=== PATIENT | female | born 1975 | race African-American/Black ===

== ENCOUNTER → 2016-05-13 | Outpatient (CLI) | payer OTHER ==
[~2016-05-13] MED LIST: ACCUNEB SO1.25 MG/1; ADVAIR HFA 230M12 GM; HYDROCHLOROTH12.5 M1 PO; MACROBID 100 M100 M1 PO; NORVASC2.5 MG PO; ORTHO EVRA PAT1 EACH; PHENERGAN 25 MG25 M1 PO; PRAZOSIN 1 MG CA1 M1 PO; SONATA5 MG PO; WOMEN S ONE DA; XANAX 0.25 MG0.25 MG PO; ZOLOFT25 MG PO
== END ==
LOC: MRI 03-19 13:23
DX: I63.9 Cerebral infarction, unspecified (principal); E34.8 Other specified endocrine disorders

== ENCOUNTER 2016-07-09 22:25 | Emergency (ER) | payer BC, OTHER ==
[~2016-07-09] VITALS: Ht 162.6 cm; Wt 56.7 kg
[2016-07-09 23:09] LABS: BASOPHILS 0.8 % (0.0-2.0); EOSINOPHILS 0.8 % (0.0-3.0); HEMATOCRIT 26.4 % (37.0-47.0); HEMOGLOBIN 8.3 gm/dL (12.0-15.0); LYMPHOCYTES 21.2 % (24.0-44.0); MCH 21.4 pg (26.0-34.0); MCHC 31.3 g/dL (28.0-37.0); MCV 68.4 fL (80.0-100.0); MONOCYTES 5.5 % (1.0-8.0); PLATELET COUNT 389 thou/uL (150-400); POLYS 71.7 % (36.0-66.0); RBC 3.86 mil/uL (4.20-5.00); RDW 18.6 % (10.5-14.5)
[2016-07-09 23:18] LABS: ANION GAP 10 mmol/L (7-16); BUN 7 mg/dL (7-18); CALCIUM 8.3 mg/dL (8.5-10.1); CHLORIDE 103 mmol/L (98-107); CO2 24 mmol/L (21-32); CREATININE 0.8 mg/dL (0.6-1.0); GLUCOSE 118 mg/dL (74-106); POTASSIUM 3.3 mmol/L (3.5-5.1); SODIUM 137 mmol/L (136-145)
[2016-07-09 23:21] LABS: MANUAL DIFF NO
[2016-07-09 23:23] LABS: ALBUMIN 3.3 g/dL (3.4-5.0); ALKALINE PHOSPHATASE 42 U/L (46-116); DIRECT BILIRUBIN < 0.1 mg/dL (<0.1-0.3); SGOT 13 U/L (15-37); SGPT 13 U/L (30-65); TOTAL BILIRUBIN 0.2 mg/dL (<0.1-1.0); TOTAL PROTEIN 7.5 g/dL (6.4-8.2)
[2016-07-10 00:01] LABS: URINE BILIRUBIN NEGATIVE (Negative); URINE BLOOD NEGATIVE (Negative); URINE COLOR YELLOW; URINE GLUCOSE-RANDOM* NEGATIVE (Negative); URINE KETONES NEGATIVE (Negative); URINE NITRITE NEGATIVE (Negative); URINE PROTEIN (DIPSTICK) TRACE (Negative); URINE SPECIFIC GRAVITY 1.015 (1.003-1.035); URINE UROBILINOGEN 0.2 E.U./dl (0.2-1.0)
[2016-07-10 00:13] LABS: BACTERIA 1-9 Few /HPF (None Seen); CASTS None Seen /LPF (None Seen); CRYSTALS None Seen /LPF (None Seen); SQUAMOUS >10 Many /LPF (0-3); URINE RBC 0-2 Rare /HPF (0-2); URINE WBC 0-5 Rare /HPF (0-5)
[2016-07-10 00:21] LABS: ANISOCYTOSIS 3+; MACROCYTES 1+; MICROCYTES 2+
[2016-07-10 00:22] LABS: HYPOCHROMASIA SLIGHT
[2016-07-10] MEDS ORDERED: CITRATE OF MAG296 ML PO (01:14)
[2016-07-10] MEDS ORDERED: NORCO 5-325 TA1 EACH PO (01:14)
[2016-07-10] MEDS ORDERED: SENOKOT-S1 TA1 PO (01:14)
[2016-07-10 01:42] VITALS: BP 130/80
== END 2016-07-10 01:53 | disposition home or self-care (01) ==
LOC: ER 22:25
PROVIDERS: Emergency Medicine
DX: K59.00 Constipation, unspecified (principal); D64.9 Anemia, unspecified; D25.9 Leiomyoma of uterus, unspecified; E87.6 Hypokalemia; I10 Essential (primary) hypertension

== ENCOUNTER → 2016-09-14 | Outpatient (CLI) | payer BC, OTHER ==
[~2016-09-14] MED LIST changes: -ACCUNEB SO1.25 MG/1; +ACCUNEB SO1.25 MG/1 INH; +CITRATE OF MAG296 ML PO; +LOSARTAN-HCTZ1 EAC3 PO; +NORCO 5-325 TA1 EACH PO; +SENOKOT-S1 TA1 PO
[2016-09-14 08:45] VITALS: BP 116/73
[2016-09-14 10:05] VITALS: BP 116/70
== END ==
LOC: OPONC 01:29
DX: D50.0 Iron deficiency anemia secondary to blood loss (chronic) (principal); N92.6 Irregular menstruation, unspecified
CPT/HCPCS: 95000

== ENCOUNTER → 2016-09-21 | Outpatient (CLI) | payer BC, OTHER ==
[2016-09-21 08:10] VITALS: BP 123/73
[2016-09-21 09:15] VITALS: BP 115/69
== END ==
LOC: OPONC 07:51
DX: D50.0 Iron deficiency anemia secondary to blood loss (chronic) (principal)
CPT/HCPCS: 95000

== ENCOUNTER 2017-08-01 07:53 | Emergency (ER) | payer OTHER, BC ==
[~2017-08-01] VITALS: Ht 162.6 cm; Wt 65.3 kg
[~2017-08-01 07:53] MED LIST changes: +HYDROCODONE-AP1 EAC6 PO; +NAPROSYN500 MG PO
[2017-08-01] MEDS ORDERED: IBUPROFEN 600600 M1 PO (09:39)
[2017-08-01] MEDS ORDERED: ULTRAM 50MG TAB50 MG PO (09:39)
[2017-08-01] MEDS ORDERED: NORFLEX100 MG PO (09:39)
== END 2017-08-01 10:03 | disposition home or self-care (01) ==
LOC: ER 07:53
DX: S06.9X1A Unspecified intracranial injury with loss of consciousness of 30 minutes or less, initial encounter (principal); S20.212A Contusion of left front wall of thorax, initial encounter; S00.83XA Contusion of other part of head, initial encounter; I10 Essential (primary) hypertension; J45.909 Unspecified asthma, uncomplicated; Z88.2 Allergy status to sulfonamides; Y04.8XXA Assault by other bodily force, initial encounter; Y93.89 Activity, other specified; Y92.89 Other specified places as the place of occurrence of the external cause; Y99.8 Other external cause status

== ENCOUNTER 2018-08-19 16:02 | Emergency (ER) | payer OTHER ==
[~2018-08-19] VITALS: Ht 165.1 cm; Wt 59.0 kg
[~2018-08-19 16:02] MED LIST changes: +IBUPROFEN 600600 M1 PO; +NORFLEX100 MG PO; +ULTRAM 50MG TAB50 MG PO
[2018-08-19 17:44] LABS: URINE BILIRUBIN NEGATIVE (Negative); URINE BLOOD NEGATIVE (Negative); URINE CLARITY CLEAR; URINE COLOR YELLOW; URINE GLUCOSE-RANDOM* NEGATIVE (Negative); URINE KETONES NEGATIVE (Negative); URINE LEUKOCYTES-REFLEX NEGATIVE (Negative); URINE NITRITE-REFLEX NEGATIVE (Negative); URINE PROTEIN (DIPSTICK) TRACE (Negative); URINE SPECIFIC GRAVITY 1.025 (1.005-1.035); URINE UROBILINOGEN 0.2 E.U./dl (0.2-1.0)
[2018-08-19 17:58] LABS: ABSOLUTE NEUTROPHILS 4.2 thou/uL (1.4-8.2); BASOPHILS 0.9 % (0.0-2.0); EOSINOPHILS 1.4 % (0.0-3.0); HEMATOCRIT 31.2 % (37.0-47.0); HEMOGLOBIN 10.1 gm/dL (12.0-15.0); LYMPHOCYTES 34.6 % (24.0-44.0); MCH 23.6 pg (26.0-34.0); MCHC 32.3 g/dL (28.0-37.0); MONOCYTES 7.9 % (1.0-8.0); PLATELET COUNT 423 thou/uL (150-400); POLYS 55.2 % (36.0-66.0); RBC 4.28 mil/uL (4.20-5.00); RDW 16.5 % (10.5-14.5); WBC 7.6 thou/uL (4.0-11.0)
[2018-08-19 18:09] LABS: ANION GAP 12 mmol/L (7-16); BUN 10 mg/dL (7-18); CALCIUM 9.3 mg/dL (8.5-10.1); CHLORIDE 101 mmol/L (98-107); CO2 24 mmol/L (21-32); CREATININE 0.8 mg/dL (0.6-1.0); GLUCOSE 94 mg/dL (74-106); POTASSIUM 3.1 mmol/L (3.5-5.1); SODIUM 137 mmol/L (136-145)
[2018-08-19 18:16] LABS: ALBUMIN 3.9 g/dL (3.4-5.0); MAGNESIUM 2.1 mg/dL (1.8-2.4); SGOT 14 U/L (15-37); SGPT 12 U/L (30-65); TOTAL BILIRUBIN 0.2 mg/dL (<0.1-1.0); TOTAL PROTEIN 8.3 g/dL (6.4-8.2); TROPONIN-I <0.06 ng/mL (<0.06)
[2018-08-19 18:17] LABS: ANISOCYTOSIS 1+; HYPOCHROMASIA 1+; MICROCYTES 1+
[2018-08-19 18:26] LABS: APTT 26.1 Seconds (24.5-32.8); PROTIME 10.1 Seconds (9.3-11.4)
[2018-08-19] MEDS ORDERED: LABETALOL HCL100 MG PO (18:54)
[2018-08-19] MEDS ORDERED: VITAMIN B-625 MG PO (20:02)
[2018-08-19 20:19] VITALS: BP 111/61
--- NOTE | 2018-08-20 11:12 | EKG ---
[address] [place] [employer] [place] [address] ELECTROCARDIOGRAM REPORT Name: OLIVIA NESBITT [facility] [id number] ������������������ Admission: 08/19/18 ������������������ Attend Phys: Discharge: 08/19/18 ������������������ Date of : 75 Report #: [id number] ����������������������������������������������������������������� [id number] THIS REPORT FOR: //name// [facility] ED Test Date: 2018-08-19 Test Time: 17:25:39 Pat Name: OLIVIA NESBITT Department: Room: Gender: F Rn Telephonic: ANTONY : 1975 Requested By: [place] Order Number: [id number] MD: Juan Manuel Downs Measurements Intervals [place] Rate: 80 P: 47 NE: 147 QRS: -5 QRSD: 88 T: 7 QT: 376 QTc: 434 Interpretive Statements Sinus rhythm No significant abnormality Compared to ECG 12/17/2016 14:55:24 No significant change was found Electronically Signed On 08-20-2018 11:12:18 CDT by Juan Manuel Downs [email or web address] ��������������������������������������������� <ELECTRONICALLY SIGNED> ���������������������������������������� By: Juan Manuel Downs MD, [facility] ��������������������������������������������� 08/20/18 1112 1725 24 Juan Manuel Downs MD, FACC /EPI
== END 2018-08-19 20:19 ==
LOC: ER 16:02
PROVIDERS: Emergency Medicine
DX: O16.2 Unspecified maternal hypertension, second trimester (principal); O46.92 Antepartum hemorrhage, unspecified, second trimester; O99.512 Diseases of the respiratory system complicating pregnancy, second trimester; R42 Dizziness and giddiness; Z98.890 Other specified postprocedural states; Z86.2 Personal history of diseases of the blood and blood-forming organs and certain disorders involving the immune mechanism; Z88.2 Allergy status to sulfonamides; Z3A.20 20 weeks gestation of pregnancy

== ENCOUNTER 2019-05-20 13:36 | Emergency (ER) | payer OTHER ==
[~2019-05-20] VITALS: Ht 162.6 cm; Wt 63.5 kg
[~2019-05-20 13:36] MED LIST changes: +LABETALOL HCL100 MG PO; +VITAMIN B-625 MG PO
[2019-05-20 14:58] LABS: URINE BLOOD 3+ (Negative); URINE CLARITY SL CLOUDY; URINE COLOR YELLOW; URINE GLUCOSE-RANDOM* NEGATIVE (Negative); URINE KETONES TRACE (Negative); URINE LEUKOCYTES-REFLEX NEGATIVE (Negative); URINE NITRITE-REFLEX NEGATIVE (Negative); URINE PROTEIN (DIPSTICK) 2+ (Negative); URINE SPECIFIC GRAVITY >= 1.030 (1.005-1.035)
[2019-05-20 15:00] LABS: ICTOTEST (BILI CONFIRMATORY) Negative (Negative); URINE BILIRUBIN NEGATIVE (Negative)
[2019-05-20 15:10] LABS: BACTERIA-REFLEX 1-9 Few /HPF (None Seen); CASTS None Seen /LPF (None Seen); CRYSTALS None Seen /LPF (None Seen); SQUAMOUS 0-3 Few /LPF (0-3); URINE RBC >20 Many /HPF (0-2); URINE WBC-REFLEX 0-5 Rare /HPF (0-5)
[2019-05-20 15:20] LABS: HEMATOCRIT 25.3 % (37.0-47.0); MCH 22.7 pg (26.0-34.0); MCHC 31.8 g/dL (28.0-37.0); MCV 71.3 fL (80.0-100.0); RBC 3.54 mil/uL (4.20-5.00); RDW 16.9 % (10.5-14.5); WBC 7.2 thou/uL (4.0-11.0)
[2019-05-20 15:26] LABS: POTASSIUM 4.1 mmol/L (3.5-5.1)
[2019-05-20] MEDS ORDERED: TENDERA-OB SOF1 EACH PO (17:28)
[2019-05-20] MEDS ORDERED: NORCO 5-325 TA1 EAC1 PO (17:54)
[2019-05-20 17:59] VITALS: BP 126/80
== END 2019-05-20 18:00 | disposition home or self-care (01) ==
LOC: ER 13:36
PROVIDERS: Emergency Medicine Emergency Medical Services
DX: D50.9 Iron deficiency anemia, unspecified (principal); N93.9 Abnormal uterine and vaginal bleeding, unspecified; R10.30 Lower abdominal pain, unspecified; I10 Essential (primary) hypertension; J45.909 Unspecified asthma, uncomplicated; Z88.2 Allergy status to sulfonamides

== ENCOUNTER → 2019-06-15 | Outpatient (CLI) | payer OTHER ==
[~2019-06-15] VITALS: Ht 162.6 cm; Wt 63.5 kg
[~2019-06-15] MED LIST changes: +IBUPROFEN PM C1 EACH PO; +NORCO 5-325 TA1 EAC1 PO; +TENDERA-OB SOF1 EACH PO
[2019-06-15 14:15] VITALS: BP 138/93
--- NOTE | 2019-06-15 17:28 | NUR ---
IN FOR 1ST DOSE OF FERRLECIT FOR IRON DEF. ANEMIA. ADMISSION HISTORY AND ASSESSMENT COMPLETED. MEDICATION RECONCILED. IV PLACED IN RAC AND INFUSED FERRLECIT OVER 1 HOUR. TOLERATED WELL WITH NO REACTION NOTED. REMOVED IV AND DISMISSED IN GOOD CONDITION. TO RETURN NEXT WEDNESDAY FOR 2ND INFUSION.
== END ==
LOC: OPONC 09:13
DX: D50.9 Iron deficiency anemia, unspecified (principal)
CPT/HCPCS: 95000

== ENCOUNTER → 2019-06-23 | Outpatient (CLI) | payer OTHER ==
[2019-06-23 14:10] VITALS: BP 129/79
--- NOTE | 2019-06-23 17:42 | NUR ---
IN FOR 2ND FERRLICET INFUSION. STATED FEELING BETTER WITH LESS FATIGUE IN THE LAST WEEK. STATED HAD A LITTLE NAUSEA AND A HEADACHE FOR 2 DAYS AFTER 1ST INFUSION. STATED FEELING WELL TODAY. INFUSED FERRLICET OVER 1 HOUR AND TOLERATED WELL WITH NO ADVERSE REACTION NOTED. REMOVED IV AND DISMISSED IN GOOD CONDITION.
== END ==
LOC: OPONC 09:51
DX: D50.9 Iron deficiency anemia, unspecified (principal)
CPT/HCPCS: 95000

== ENCOUNTER 2020-02-13 19:14 | Emergency (ER) | payer OTHER ==
[~2020-02-13] VITALS: Ht 162.6 cm; Wt 65.3 kg
[2020-02-13] MEDS ORDERED: ASA-BUTALB-CAF1 EACH PO (20:12)
[2020-02-13] MEDS ORDERED: AUROVELA FE 1-1 EACH PO (20:13)
[2020-02-13] MEDS ORDERED: VALACYCLOVIR500 MG PO (20:16)
[2020-02-13] MEDS ORDERED: LORAZEPAM 1 MG T1 MG PO (20:18)
[2020-02-13 21:31] LABS: ABSOLUTE NEUTROPHILS 4.3 thou/uL (1.4-8.2); BASOPHILS 0.9 % (0.0-2.0); HEMATOCRIT 31.1 % (37.0-47.0); LYMPHOCYTES 34.1 % (24.0-44.0); MCH 24.5 pg (26.0-34.0); MCHC 32.2 g/dL (28.0-37.0); MCV 75.9 fL (80.0-100.0); MONOCYTES 7.4 % (1.0-8.0); PLATELET COUNT 386 thou/uL (150-400); POLYS 55.6 % (36.0-66.0); RBC 4.09 mil/uL (4.20-5.00); WBC 7.7 thou/uL (4.0-11.0)
[2020-02-13 21:35] LABS: ANION GAP 12 mmol/L (7-16); BUN 11 mg/dL (7-18); CALCIUM 8.7 mg/dL (8.5-10.1); CHLORIDE 104 mmol/L (98-107); CO2 26 mmol/L (21-32); CREATININE 0.8 mg/dL (0.6-1.0); GLUCOSE 115 mg/dL (74-106); POTASSIUM 3.6 mmol/L (3.5-5.1); SODIUM 142 mmol/L (136-145)
[2020-02-13 21:45] LABS: ALBUMIN 3.8 g/dL (3.4-5.0); LIPASE 114 U/L (73-393); SGOT 25 U/L (15-37); SGPT 32 U/L (30-65); TOTAL BILIRUBIN 0.2 mg/dL (0.2-1.0); TOTAL PROTEIN 7.9 g/dL (6.4-8.2); TROPONIN-I <0.06 ng/mL (<0.06)
[2020-02-13] MEDS ORDERED: ATIVAN0.5 M1 PO (22:12)
[2020-02-13 22:48] VITALS: BP 118/77
--- NOTE | 2020-02-14 07:22 | EKG ---
[place] [address] [facility] [place] [address] ELECTROCARDIOGRAM REPORT Name: OLIVIA NESBITT [facility] [id number] Admission: 02/13/20 Attend Phys: Discharge: 02/13/20 Date of : 75 Report #: [id number] [facility] ED Test Date: 2020-02-13 Test Time: 20:38:41 Pat Name: OLIVIA NESBITT Department: Room: Gender: F [employer] Driver Operator: mark anthony : 1975 Requested By: Luis Renteria Order Number: [id number] MD: Carter Corona Measurements Intervals [place] Rate: 83 P: 55 MA: 143 QRS: -12 QRSD: 95 T: 7 QT: 375 QTc: 441 Interpretive Statements Sinus rhythm Probable left atrial enlargement Left ventricular hypertrophy Compared to ECG 08/19/2018 17:25:39 Left ventricular hypertrophy now present Electronically Signed On 02-14-2020 7:22:09 [employer] by Carter Corona [email or web address] <ELECTRONICALLY SIGNED> By: Carter Corona MD, [facility] 02/14/20721 37 2038 Carter Corona MD, FACC /EPI
== END 2020-02-13 22:50 | disposition home or self-care (01) ==
LOC: ER 19:14
PROVIDERS: Emergency Medicine
DX: F41.9 Anxiety disorder, unspecified (principal); D64.9 Anemia, unspecified; R42 Dizziness and giddiness; R20.2 Paresthesia of skin; R51.9 Headache, unspecified; I10 Essential (primary) hypertension; J45.909 Unspecified asthma, uncomplicated; Z98.890 Other specified postprocedural states; Z98.51 Tubal ligation status; Z79.899 Other long term (current) drug therapy; Z88.2 Allergy status to sulfonamides